=== PATIENT | male | born 1990 | race Caucasian/White ===

== ENCOUNTER 2019-06-20 22:36 | Emergency (ER) | payer OTHER ==
[~2019-06-20] VITALS: Ht 195.6 cm; Wt 83.9 kg
[~2019-06-20 22:36] MED LIST: Bactrim Ds Tab1 EACH PO; CEPH500 PO; CODACE30 PO; Diflucan150 MG PO; Keflex500 MG PO; Percocet 10-321 EACH PO; SULTRIDS PO
[2019-06-20] MEDS ORDERED: Bactrim 400-801 EACH PO (23:33)
[2019-06-20] MEDS ORDERED: CEPH500 PO (23:33)
== END 2019-06-20 23:54 | disposition home or self-care (01) ==
LOC: ER 22:36
DX: L03.113 Cellulitis of right upper limb (principal); F17.210 Nicotine dependence, cigarettes, uncomplicated; Z59.0 Homelessness
CPT/HCPCS: 96372; 99283-25; A9270-GY; J1885

== ENCOUNTER 2020-01-24 12:44 | Emergency (ER) | payer OTHER ==
[~2020-01-24] VITALS: Ht 195.6 cm; Wt 83.9 kg
[~2020-01-24 12:44] MED LIST changes: +Bactrim 400-801 EACH PO
[2020-01-24 14:48] LABS: BASOPHILS ABSOLUTE AUTO 0.03 K/mm3 (0.00-0.23); BASOPHILS PERCENT AUTO 1 % (0-2); EOSINOPHILS PERCENT AUTO 2 % (0-6); Hematocrit 35.3 % (37.0-53.0); Hemoglobin 11.8 g/dL (13.5-17.5); IMMATURE GRAN ABSOLUTE AUTO 0.02 K/mm3 (0.00-0.10); IMMATURE GRAN PERCENT AUTO 0 % (0-1); LYMPHOCYTES ABSOLUTE AUTO 1.72 K/mm3 (0.84-5.20); LYMPHOCYTES PERCENT AUTO 26 % (21-46); MONOCYTES ABSOLUTE AUTO 0.69 K/mm3 (0.16-1.47); MONOCYTES PERCENT AUTO 11 % (4-13); Mean Corpuscular HGB 28.4 pg (26.0-34.0); Mean Corpuscular HGB Conc 33.4 g/dL (31.5-36.5); Mean Corpuscular Volume 85 fL (80-100); Mean Platelet Volume 9.2 fL (9.1-12.4); NEUTROPHILS ABSOLUTE AUTO 4.02 K/mm3 (1.96-9.15); NEUTROPHILS PERCENT AUTO 61 % (41-73); Platelet Count 232 K/mm3 (150-400); RDW Coefficient Variation 14.1 % (11.7-14.2); Red Blood Cell Count 4.15 M/mm3 (4.30-5.90); White Blood Cell Count 6.58 K/mm3 (4.00-11.30)
[2020-01-24 15:15] LABS: Alanine Aminotransfer (ALT/SGP 44 U/L (12-78); Albumin, Blood 3.5 g/dL (3.4-5.0); Albumin/Globulin Ratio 0.9 (0.8-1.8); Alk Phos 107 U/L (50-136); Anion Gap 3 mmol/L (6-16); Aspartate Aminotrans (AST/SGOT 45 U/L (12-37); Bilirubin, Total 0.6 mg/dL (0.1-1.0); Blood Urea Nitrogen 12 mg/dL (8-24); Bun/Creatinine Ratio 15.7 (12.0-20.0); CO2, Blood 30 mmol/L (21-32); Chloride, Blood 106 mmol/L (98-108); Creatinine, Blood 0.77 mg/dL (0.60-1.20); Globulin, Blood 3.7 g/dL (2.2-4.0); Glomerular Filtration Rate >60 (60-); Glucose, Blood 92 mg/dL (70-99); Sodium, Blood 139 mmol/L (136-145); Total Protein, Blood 7.2 g/dL (6.4-8.2)
[2020-01-24] MEDS ORDERED: CEPH500 PO (15:51)
[2020-01-24] MEDS ORDERED: Avidoxy100 MG PO (15:51)
== END 2020-01-24 16:18 | disposition home or self-care (01) ==
LOC: ER 12:44
PROVIDERS: Emergency Medicine
DX: L03.116 Cellulitis of left lower limb (principal); L03.115 Cellulitis of right lower limb; F17.210 Nicotine dependence, cigarettes, uncomplicated; Z88.0 Allergy status to penicillin
CPT/HCPCS: 36415; 80053; 83880; 85025; 93970; 99284-25

== ENCOUNTER 2020-04-23 16:51 | Emergency (ER) | payer OTHER ==
[~2020-04-23] VITALS: Ht 195.6 cm; Wt 81.7 kg
[~2020-04-23 16:51] MED LIST changes: +Avidoxy100 MG PO
[2020-04-23 17:29] LABS: BASOPHILS ABSOLUTE AUTO 0.04 K/mm3 (0.00-0.23); BASOPHILS PERCENT AUTO 1 % (0-2); EOSINOPHILS ABSOLUTE AUTO 0.13 K/mm3 (0.00-0.68); EOSINOPHILS PERCENT AUTO 2 % (0-6); Hematocrit 38.9 % (37.0-53.0); Hemoglobin 12.4 g/dL (13.5-17.5); IMMATURE GRAN ABSOLUTE AUTO 0.03 K/mm3 (0.00-0.10); IMMATURE GRAN PERCENT AUTO 0 % (0-1); LYMPHOCYTES ABSOLUTE AUTO 1.45 K/mm3 (0.84-5.20); LYMPHOCYTES PERCENT AUTO 19 % (21-46); MONOCYTES ABSOLUTE AUTO 1.05 K/mm3 (0.16-1.47); MONOCYTES PERCENT AUTO 14 % (4-13); Mean Corpuscular HGB 27.6 pg (26.0-34.0); Mean Corpuscular HGB Conc 31.9 g/dL (31.5-36.5); Mean Corpuscular Volume 87 fL (80-100); NEUTROPHILS ABSOLUTE AUTO 5.03 K/mm3 (1.96-9.15); NEUTROPHILS PERCENT AUTO 65 % (41-73); Platelet Count 210 K/mm3 (150-400); RDW Coefficient Variation 13.4 % (11.7-14.2); RDW Standard Deviation 42.3 fL (35.1-46.3); Red Blood Cell Count 4.49 M/mm3 (4.30-5.90); White Blood Cell Count 7.73 K/mm3 (4.00-11.30)
[2020-04-23 17:49] LABS: Alanine Aminotransfer (ALT/SGP 56 U/L (12-78); Albumin, Blood 3.2 g/dL (3.4-5.0); Albumin/Globulin Ratio 0.8 (0.8-1.8); Alk Phos 97 U/L (50-136); Anion Gap 9 mmol/L (6-16); Aspartate Aminotrans (AST/SGOT 49 U/L (12-37); Bilirubin, Total 0.6 mg/dL (0.1-1.0); Blood Urea Nitrogen 16 mg/dL (8-24); Bun/Creatinine Ratio 21.9 (12.0-20.0); CO2, Blood 25 mmol/L (21-32); Calcium, Blood 8.5 mg/dL (8.5-10.1); Chloride, Blood 110 mmol/L (98-108); Creatinine, Blood 0.73 mg/dL (0.60-1.20); Globulin, Blood 4.2 g/dL (2.2-4.0); Glomerular Filtration Rate >60 (60-); Glucose, Blood 88 mg/dL (70-99); Potassium, Blood 3.7 mmol/L (3.5-5.5); Sodium, Blood 144 mmol/L (136-145); Total Protein, Blood 7.4 g/dL (6.4-8.2)
[2020-04-23] MEDS ORDERED: CEPH500 PO (19:48)
== END 2020-04-23 20:12 | disposition home or self-care (01) ==
LOC: ER 16:51
PROVIDERS: Physician Assistant
DX: I83.12 Varicose veins of left lower extremity with inflammation (principal); I83.11 Varicose veins of right lower extremity with inflammation; F15.10 Other stimulant abuse, uncomplicated; F17.210 Nicotine dependence, cigarettes, uncomplicated; Z88.0 Allergy status to penicillin
CPT/HCPCS: 80053; 83880; 85025; 93005; 93010; 99284-25

== ENCOUNTER 2020-12-03 15:30 | Inpatient (IN) | payer OTHER ==
[~2020-12-03] VITALS: Ht 195.6 cm; Wt 75.2 kg
[2020-12-03 15:56] LABS: BASOPHILS ABSOLUTE AUTO 0.04 K/mm3 (0.00-0.23); BASOPHILS PERCENT AUTO 0 % (0-2); EOSINOPHILS ABSOLUTE AUTO 0.05 K/mm3 (0.00-0.68); EOSINOPHILS PERCENT AUTO 1 % (0-6); IMMATURE GRAN ABSOLUTE AUTO 0.04 K/mm3 (0.00-0.10); IMMATURE GRAN PERCENT AUTO 0 % (0-1); LYMPHOCYTES ABSOLUTE AUTO 1.22 K/mm3 (0.84-5.20); LYMPHOCYTES PERCENT AUTO 11 % (21-46); MONOCYTES PERCENT AUTO 10 % (4-13); Mean Corpuscular HGB 28.1 pg (26.0-34.0); Mean Corpuscular HGB Conc 34.2 g/dL (31.5-36.5); Mean Corpuscular Volume 82 fL (80-100); Mean Platelet Volume 9.8 fL (9.1-12.4); NEUTROPHILS ABSOLUTE AUTO 8.47 K/mm3 (1.96-9.15); NEUTROPHILS PERCENT AUTO 77 % (41-73); Platelet Count 230 K/mm3 (150-400); RDW Standard Deviation 41.3 fL (35.1-46.3); Red Blood Cell Count 4.63 M/mm3 (4.30-5.90); White Blood Cell Count 10.92 K/mm3 (4.00-11.30)
[2020-12-03 16:15] LABS: Albumin, Blood 3.6 g/dL (3.4-5.0); Albumin/Globulin Ratio 0.8 (0.8-1.8); Bilirubin, Total 0.5 mg/dL (0.1-1.0); Bun/Creatinine Ratio 17.4 (12.0-20.0); Calcium, Blood 9.5 mg/dL (8.5-10.1); Creatinine, Blood 2.35 mg/dL (0.60-1.20); Globulin, Blood 4.3 g/dL (2.2-4.0); Potassium, Blood 3.9 mmol/L (3.5-5.5); Total Protein, Blood 7.9 g/dL (6.4-8.2)
[2020-12-03 20:31] LABS: Source, Urine Clean Catch
[2020-12-03 20:38] LABS: Appearance, Urine Clear (Clear); Bilirubin, Urine Neg (Neg); Blood, Urine 2+ (Neg); Color, Urine Yellow (P-Yellow); Glucose Qualitative, Urine Neg (Neg); Ketones, Urine Neg (Neg); Leukocyte Esterase, Urine 1+ (Neg); Nitrite, Urine Neg (Neg); Protein, Urine 2+ (Neg); Urobilinogen, Urine NORM (Normal)
[2020-12-03 20:46] LABS: Bacteria Few /hpf; Red Blood Cells, Urine 0-2 /hpf (0-2); Squamous Epithelial Cells Few /hpf (Few); White Blood Cells, Urine 0-2 /hpf (0-5)
[2020-12-03 20:51] LABS: U Amphetamine Screen DETECTED; U Methamphetamine Screen DETECTED; U Opiates Screen DETECTED
[2020-12-03 20:52] LABS: U Barbituate Screen Not Detected; U Benzodiazapine Screen Not Detected; U Buprenorphine Screen Not Detected; U Cannabinoids Screen Not Detected; U Cocaine Screen Not Detected; U Methadone Screen Not Detected; U Oxycodone Screen Not Detected; U Phencyclidine Screen Not Detected; U Propoxyphene Screen Not Detected
[2020-12-03 21:12] LABS: Magnesium, Blood 2.3 mg/dL (1.6-2.4); Phosphorus, Blood 3.8 mg/dL (2.5-4.9)
[2020-12-03 21:28] LABS: C-REACTIVE PROTEIN, EXT RANGE 9.38 mg/dL (0.000-0.300)
--- NOTE | 2020-12-03 22:55 | NUR ---
transfer report from Juan CROWE RN on 30 year old Male with LT LE wound rapidly progressive & fever chills cellulitis. HX of meth abuse Heroin abuse bouth used per MD report in last several days. Tobacco addiction. CT LT LE done will armando wound . Await admission.
--- NOTE | 2020-12-04 00:21 | NUR ---
PT with stated hx of MRSA in 3rd grade he says was treated with topical ointment admitted with lt le wound. PT has hx of hep C active drug abuse with meth snorted & iv heroin injected within last 24 to 48 hours. Labile declines nicotine patch & complains that bed is too short for him so he will sleep on floor. Discouraged that. PT has order for swab nares for MRSA but he does not allow for proper collection, will attempt to recollect swab correctly. Getting IV NS fluid bolus wide open x 1 then NS at 125 ml hr. Vanco infusing at 133 ml hr.
--- NOTE | 2020-12-04 00:30 | NUR ---
pt arrives from ER irritable & says his bed is too small he wants to sleep on floor. Will attempt to find longer bed. PT also not coopeartive with MRSA swab to nares. Will attempt to find longer bed & armando lt le cellulitis. Labile. PAin med given as directed recieving IV fluid bolus.
--- NOTE | 2020-12-04 04:40 | NUR ---
30 year old Male with chemical dependency using nasal meth & IV heroin with addiction to amphetamine & heroin. PT was labile on admit but pleasant this AM. Photo doc of wounds with lt LE & several IV injection sites also photographed. IV fluids & IV antibiotics continue. SW referral for substance abuse & homelessness. MRSA swabs sent lt le & bilat nares.
[2020-12-04 04:44] LABS: Hematocrit 36.8 % (37.0-53.0); Hemoglobin 12.4 g/dL (13.5-17.5); Mean Corpuscular HGB 27.7 pg (26.0-34.0); Mean Corpuscular HGB Conc 33.7 g/dL (31.5-36.5); Mean Corpuscular Volume 82 fL (80-100); Mean Platelet Volume 9.4 fL (9.1-12.4); Platelet Count 175 K/mm3 (150-400); RDW Coefficient Variation 13.8 % (11.7-14.2); RDW Standard Deviation 41.4 fL (35.1-46.3); Red Blood Cell Count 4.47 M/mm3 (4.30-5.90); White Blood Cell Count 14.17 K/mm3 (4.00-11.30)
[2020-12-04 05:06] LABS: BAND PERCENT MAN 32 % (0-8); BASOPHILS PERCENT MAN 0 % (0-2); EOSINOPHILS PERCENT MAN 0 % (0-6); LYMPHOCYTES ABSOLUTE MAN 0.56 K/mm3 (0.84-5.20); LYMPHOCYTES PERCENT MAN 4 % (21-46); MONOCYTES PERCENT MAN 5 % (4-13); NEUTROPHILS ABSOLUTE MAN 12.89 K/mm3 (1.96-9.15); SEG NEUTROPHILS PERCENT MAN 59 % (41-73); TOTAL CELLS COUNTED 100
[2020-12-04 05:11] LABS: Alanine Aminotransfer (ALT/SGP 26 U/L (12-78); Albumin, Blood 2.6 g/dL (3.4-5.0); Albumin/Globulin Ratio 0.7 (0.8-1.8); Alk Phos 78 U/L (50-136); Anion Gap 7 mmol/L (6-16); Aspartate Aminotrans (AST/SGOT 26 U/L (12-37); Bilirubin, Total 0.4 mg/dL (0.1-1.0); Blood Urea Nitrogen 24 mg/dL (8-24); Bun/Creatinine Ratio 24.4 (12.0-20.0); CO2, Blood 23 mmol/L (21-32); Calcium, Blood 8.3 mg/dL (8.5-10.1); Chloride, Blood 105 mmol/L (98-108); Creatinine, Blood 0.98 mg/dL (0.60-1.20); Globulin, Blood 3.8 g/dL (2.2-4.0); Glomerular Filtration Rate >60 (60-); Glucose, Blood 101 mg/dL (70-99); Potassium, Blood 3.7 mmol/L (3.5-5.5); Sodium, Blood 135 mmol/L (136-145); Total Protein, Blood 6.4 g/dL (6.4-8.2)
[2020-12-04 13:05] LABS: Vancomycin, Random 5.8 ug/mL
--- NOTE | 2020-12-04 18:15 | NUR ---
SHIFT SUMMARY WANTING TO SLEEP ALL DAY. REPORTS FEELING WITHDRAWAL SYMPTOMS WITH ANXIETY AND NERVOUSNESS. USED A FWW TO WALK TO BATHROOM WITH 1 P ASSIST FOR IV POLE. HUNGRY WHEN AWAKE. HAS TRIED TO BE COOPERATIVE WITH CARE BUT HAS BEEN HESITANT TO HAS BLOOD DRAWN BUT ALLOWED IT. LLE SWOLLEN AND REMAINS WARM TO TOUCH AND SENSITIVE. REDNESS CONTINUES WITH SPOTS THAT LOOK LIKE POTENTIAL TO BREAK OPEN. LOW GRADE TEMPS. DR. NICHOLSON IN TO SEE PT AND REPORTED HE DIDN'T THINK IT LOOKED LIKE NECROTIZING FASCITIS.
[2020-12-05 06:43] LABS: BASOPHILS ABSOLUTE AUTO 0.04 K/mm3 (0.00-0.23); BASOPHILS PERCENT AUTO 0 % (0-2); EOSINOPHILS PERCENT AUTO 0 % (0-6); Hematocrit 33.1 % (37.0-53.0); Hemoglobin 11.7 g/dL (13.5-17.5); IMMATURE GRAN ABSOLUTE AUTO 0.12 K/mm3 (0.00-0.10); IMMATURE GRAN PERCENT AUTO 1 % (0-1); LYMPHOCYTES ABSOLUTE AUTO 1.27 K/mm3 (0.84-5.20); LYMPHOCYTES PERCENT AUTO 8 % (21-46); MONOCYTES ABSOLUTE AUTO 1.61 K/mm3 (0.16-1.47); MONOCYTES PERCENT AUTO 10 % (4-13); Mean Corpuscular HGB 28.7 pg (26.0-34.0); Mean Corpuscular HGB Conc 35.3 g/dL (31.5-36.5); Mean Corpuscular Volume 81 fL (80-100); Mean Platelet Volume 10.8 fL (9.1-12.4); NEUTROPHILS ABSOLUTE AUTO 12.81 K/mm3 (1.96-9.15); NEUTROPHILS PERCENT AUTO 81 % (41-73); Platelet Count 183 K/mm3 (150-400); RDW Coefficient Variation 13.9 % (11.7-14.2); RDW Standard Deviation 40.9 fL (35.1-46.3); Red Blood Cell Count 4.08 M/mm3 (4.30-5.90); White Blood Cell Count 15.85 K/mm3 (4.00-11.30)
[2020-12-05 06:48] LABS: Anion Gap 9 mmol/L (6-16); Blood Urea Nitrogen 9 mg/dL (8-24); Bun/Creatinine Ratio 12.1 (12.0-20.0); CO2, Blood 24 mmol/L (21-32); Chloride, Blood 104 mmol/L (98-108); Creatinine, Blood 0.75 mg/dL (0.60-1.20); Glomerular Filtration Rate >60 (60-); Glucose, Blood 100 mg/dL (70-99); Sodium, Blood 137 mmol/L (136-145); Vancomycin, Trough 10.4 ug/mL (5.0-10.0)
[2020-12-05 08:09] LABS: HIV SCREEN 4TH GENERATION WRFX Non Reactive (Non Reactive)
--- NOTE | 2020-12-05 14:52 | NUR ---
PATIENT REMAINS IN HIS ROOM; LIKES TO BE SECLUDED AND LEFT ALONE. SLEEPS MUCH OF THE DAY. VITALS HAVE BEEN STABLE. CONTINUES TO RECIEVE IV ABX WITHOUT ADVERSE REACTIONS NOTED OR REPORTED. HAS REQUESTED OXYCODONE ONCE THIS SHIFT THUS FAR FOR HEROIN/METH USE W/D, SEEMS TO BE EFFECTIVE AND PATIENT IS TOLERATING WITHDRAWLS FAIRLY WELL. LLE REMAINS RED, WARM AND SWOLLEN; IT WAS DETERMINED THIS MORNING THAT NO SURGICAL INTERVENTION NEEDED HOWEVER PATIENT WOULD REMAIN IN THE HOSPITAL FOR IV ABX. CALL LIGHT REMAINS WITHIN REACH OF PATIENT.
--- NOTE | 2020-12-06 04:07 | NUR ---
SHIFT SUMMARY ADMITTED FOR ANATOLIY. HE HAS CELLULITIS IN LLE. FULL CODE. IV ANTIBIOTICS ARE SCHEDULED. IV FLUID INFUSING ORDERED. WBC'S HAVE BEEN ELEVATED, AWAITING MORNING LABS. CONTACT PRECAUTIONS FOR RULE OUT MRSA. LABILE MOODS REPORTED. HX OF POLYSUBSTANCE ABUSE. CONSULT IS DR NICHOLSON. NO SURGERY IS PLANNED AT THIS TIME.
[2020-12-06 05:55] LABS: BASOPHILS ABSOLUTE AUTO 0.05 K/mm3 (0.00-0.23); BASOPHILS PERCENT AUTO 0 % (0-2); EOSINOPHILS ABSOLUTE AUTO 0.06 K/mm3 (0.00-0.68); EOSINOPHILS PERCENT AUTO 0 % (0-6); Hematocrit 34.2 % (37.0-53.0); Hemoglobin 11.7 g/dL (13.5-17.5); IMMATURE GRAN ABSOLUTE AUTO 0.26 K/mm3 (0.00-0.10); IMMATURE GRAN PERCENT AUTO 2 % (0-1); LYMPHOCYTES ABSOLUTE AUTO 1.44 K/mm3 (0.84-5.20); LYMPHOCYTES PERCENT AUTO 10 % (21-46); MONOCYTES ABSOLUTE AUTO 1.09 K/mm3 (0.16-1.47); MONOCYTES PERCENT AUTO 7 % (4-13); Mean Corpuscular HGB 28.5 pg (26.0-34.0); Mean Corpuscular HGB Conc 34.2 g/dL (31.5-36.5); Mean Corpuscular Volume 83 fL (80-100); Mean Platelet Volume 9.8 fL (9.1-12.4); NEUTROPHILS PERCENT AUTO 81 % (41-73); Platelet Count 205 K/mm3 (150-400); RDW Standard Deviation 42.7 fL (35.1-46.3)
[2020-12-06 06:28] LABS: Anion Gap 7 mmol/L (6-16); Blood Urea Nitrogen 9 mg/dL (8-24); CO2, Blood 26 mmol/L (21-32); Calcium, Blood 8.4 mg/dL (8.5-10.1); Chloride, Blood 104 mmol/L (98-108); Creatinine, Blood 0.69 mg/dL (0.60-1.20); Glomerular Filtration Rate >60 (60-); Glucose, Blood 102 mg/dL (70-99); Potassium, Blood 3.3 mmol/L (3.5-5.5); Sodium, Blood 137 mmol/L (136-145)
--- NOTE | 2020-12-06 15:49 | NUR ---
PATIENT CONTINUES ON IV ABX WITHOUT S/SX ADVERSE REACTIONS NOTED OR REPORTED. VITALS STABLE AND WNL. PATIENT IS INDEPENDENT IN ROOM. SUSPICIOUS ACTIVITY IN ROOM; POSSIBLY DRUG USAGE IN ROOM, DOCTOR NOTIFIED. TRACK CORRAL NOTED AP AND DOWN BUE. LLE WITH BRIGHT REDNESS R/T CELLULITIS; PER PATIENT GREAT IMPROVEMENT FROM WHEN HE INITIALLY ADMITTED TO THE HOSPITAL. IV SITE LOST; AWAITING POWERGLIDE PLACEMENT D/T LACK OF VEINS AVAILABLE. PATIENT WITH VISITOR AT BEDSIDE AT THIS TIME. CALL LIGHT WITHIN REACH.
--- NOTE | 2020-12-07 04:15 | NUR ---
SHIFT SUMMARY ADMITTED FOR ANATOLIY. FULL CODE. FOUND TO HAVE CELLULITIS OF LEFT LOWER LEG. IV ANTIBIOTICS ARE SCHEDULED. NS INFUSING ORDERED. NEW IV PLACED THIS SHIFT. ORTHO CONSULT IS DR NICHOLSON, NO SURGERY IS PLANNED. CONTACT PRECAUTIONS FOR RULE OUT MRSA. HX OF POLYSUBSTANCE ABUSE. NO NEW CONCERNS THIS SHIFT
[2020-12-07 05:27] LABS: BASOPHILS ABSOLUTE AUTO 0.07 K/mm3 (0.00-0.23); BASOPHILS PERCENT AUTO 1 % (0-2); EOSINOPHILS PERCENT AUTO 1 % (0-6); Hematocrit 36.6 % (37.0-53.0); Hemoglobin 12.1 g/dL (13.5-17.5); IMMATURE GRAN PERCENT AUTO 3 % (0-1); LYMPHOCYTES PERCENT AUTO 16 % (21-46); MONOCYTES ABSOLUTE AUTO 1.27 K/mm3 (0.16-1.47); MONOCYTES PERCENT AUTO 10 % (4-13); Mean Corpuscular HGB 27.4 pg (26.0-34.0); Mean Corpuscular HGB Conc 33.1 g/dL (31.5-36.5); Mean Corpuscular Volume 83 fL (80-100); Mean Platelet Volume 9.6 fL (9.1-12.4); NEUTROPHILS ABSOLUTE AUTO 8.51 K/mm3 (1.96-9.15); NEUTROPHILS PERCENT AUTO 69 % (41-73); Platelet Count 274 K/mm3 (150-400); RDW Standard Deviation 42.7 fL (35.1-46.3); Red Blood Cell Count 4.42 M/mm3 (4.30-5.90); White Blood Cell Count 12.25 K/mm3 (4.00-11.30)
[2020-12-07 06:02] LABS: Anion Gap 6 mmol/L (6-16); Blood Urea Nitrogen 8 mg/dL (8-24); Bun/Creatinine Ratio 12.7 (12.0-20.0); CO2, Blood 26 mmol/L (21-32); Calcium, Blood 8.6 mg/dL (8.5-10.1); Chloride, Blood 107 mmol/L (98-108); Creatinine, Blood 0.63 mg/dL (0.60-1.20); Glomerular Filtration Rate >60 (60-); Glucose, Blood 94 mg/dL (70-99); Potassium, Blood 3.8 mmol/L (3.5-5.5); Sodium, Blood 139 mmol/L (136-145)
[2020-12-07] MEDS ORDERED: CEPH500 PO (11:07)
[2020-12-07] MEDS ORDERED: NICO21TP TOP (11:07)
[2020-12-07] MEDS ORDERED: ONDA4ODT MM (11:07)
[2020-12-07] MEDS ORDERED: VISBIOME 112.51 EACH PO (11:08)
[2020-12-07] MEDS ORDERED: Norco 5-325 Ta1 EACH PO (11:08)
--- NOTE | 2020-12-07 13:56 | NUR ---
PT DISCHARGED AT 1325 VIA WHEELCHAIR. PT HAD ALL PERSONAL BELONINGS COLLECTED AND TAKEN WITH HIM. PT HAD PAPERWORK REVIEWED AND EDUCTIONAL MATERIAL TO DISCHARGE WITH. NO DISTRESS NOTED. THIS IRRADIATED FUEL HANDLER ESCORTED OUT TO N ENTRANCE PT STATED HE HAD HIS CAR. PT DID NOT SEE CAR AND ASKED THIS IRRADIATED FUEL HANDLER TO TAKE HIM TO A PHONE AND SAID HE WOULD BE FINE FINDING A RIDE.
== END 2020-12-07 12:15 | disposition home or self-care (01) | DRG 872 ==
LOC: ER 15:30 → MEDS 21:24 → ENPENDDIS 12-07 10:32 → MEDS 12-07 12:15
PROVIDERS: Family Medicine; Nurse Practitioner Acute Care; Physician Assistant; ADMIT Internal Medicine
DX: A41.01 Sepsis due to Methicillin susceptible Staphylococcus aureus (principal); N17.9 Acute kidney failure, unspecified; L03.116 Cellulitis of left lower limb; F11.23 Opioid dependence with withdrawal; F15.23 Other stimulant dependence with withdrawal; R65.20 Severe sepsis without septic shock; B19.20 Unspecified viral hepatitis C without hepatic coma; E87.6 Hypokalemia; F17.210 Nicotine dependence, cigarettes, uncomplicated; Z88.0 Allergy status to penicillin; Z79.899 Other long term (current) drug therapy
CPT/HCPCS: 36415; 73701; 80048; 80053; 80202; 81001; 82550; 83605; 83735; 84100; 84145; 85025; 85651; 86140; 87040; 87081; 87086; 87389; 96361; 96365; 96366; 97165; 99285-25; A9270; J0690; J0692; J1644; J2185; J3010; J3370; J7030; J7050; Q9967

== ENCOUNTER 2021-11-01 07:53 | Emergency (ER) | payer OTHER ==
[~2021-11-01] VITALS: Ht 177.8 cm; Wt 81.7 kg
[~2021-11-01 07:53] MED LIST changes: +NICO21TP TOP; +Norco 5-325 Ta1 EACH PO; +ONDA4ODT MM; +VISBIOME 112.51 EACH PO
== END 2021-11-01 08:30 ==
LOC: ER 07:53
DX: R45.1 Restlessness and agitation (principal); F15.11 Other stimulant abuse, in remission; F17.210 Nicotine dependence, cigarettes, uncomplicated; Z88.0 Allergy status to penicillin
CPT/HCPCS: 96372; 99284-25; J1200; J1630; J2060

== ENCOUNTER 2022-01-20 18:37 | Emergency (ER) | payer OTHER ==
[~2022-01-20] VITALS: Ht 195.6 cm; Wt 83.9 kg
[2022-01-20] MEDS ORDERED: MAVYRET 100-401 EAC1 PO (18:45)
[2022-01-20] MEDS ORDERED: BUPRENORPHINE-1 EACH SL (18:45)
[2022-01-20] MEDS ORDERED: Monodox100 MG PO (18:47)
== END 2022-01-20 19:01 | disposition home or self-care (01) ==
LOC: ER 18:37
DX: L03.116 Cellulitis of left lower limb (principal); F17.210 Nicotine dependence, cigarettes, uncomplicated; Z88.0 Allergy status to penicillin; Z79.899 Other long term (current) drug therapy; Z59.00 Homelessness unspecified
CPT/HCPCS: A9270